=== PATIENT | male | born 1975 | race Caucasian/White ===

== ENCOUNTER 2016-12-10 17:30 | Emergency (ER) | payer MEDICAID ==
[~2016-12-10] VITALS: Wt 103.5 kg
[~2016-12-10 17:30] MED LIST: ACET1TAB40 PO; BACTDS PO; CEPH-443 PO
[2016-12-10] MEDS ORDERED: IBUP-1542 PO (17:47)
[2016-12-10] MEDS ORDERED: OFLO5DRO7 RIGHT EAR (17:47)
--- NOTE | 2016-12-10 17:51 | ERD ---
ER Documentation Chief Complaint Date/Time DATE: 12/10/16 TIME: 17:49 Chief Complaint RIGHT EAR PAIN X3 DAYS HPI This 41-year-old male complains of right ear pain and congestion for the last 3 days. He denies bleeding but may have had some discharge. Some mild congestion without fever or cough. ROS All systems reviewed and are negative except as per history of present illness. Medications Home Meds Active Scripts Ibuprofen* (Motrin*) 600 Mg Tab, 600 MG PO Q6, #20 TAB Prov:ILIR CHAVEZ MD 12/10/16 Ofloxacin Otic (Ofloxacin Otic) 5 Ml Drops, 5 DROP RIGHT EAR BID for 10 Days, # 1 BOTTLE Prov:ILIR CHAVEZ MD 12/10/16 Acetaminophen-Codeine* (Acetaminophen-Cod #3*) 300-30 Mg Tab, 1 TAB PO Q4H Y for PAIN, #14 TAB Prov:ILIR CHAVEZ MD 05/09/15 Cephalexin* (Keflex*) 500 Mg Capsule, 500 MG PO QID for 7 Days, CAP Prov:ILIR CHAVZE MD 05/09/15 Sulfamethoxazole-Trimethoprim* (Bactrim* DS) 800-160 Mg Tab, 1 TAB PO BID for 7 Days, TAB Prov:ILIR CHAVEZ MD 05/09/15 Allergies Allergies: Coded Allergies: No Known Drug Allergies (Verified Allergy, Unknown, 12/10/16) PMhx/Soc History of Surgery: No Anesthesia Reaction: No Hx Neurological Disorder: No Hx Respiratory Disorders: No Hx Cardiac Disorders: No Hx Psychiatric Problems: No Hx Miscellaneous Medical Probl: No Hx Alcohol Use: No Hx Substance Use: No Hx Tobacco Use: No Physical Exam Vitals Vital Signs Date Time Temp Pulse Resp B/P Pulse Ox O2 Delivery O2 Flow Rate FiO2 12/10/16 17:35 97.7 76 17 124/81 98 Physical Exam Const: [] Alert, met-ara-ewlzhtjld per Head: Atraumatic Eyes: Normal Conjunctiva ENT: Normal External Ears, Nose and Mouth. Appears to be some redness to the right TM as well as some irritation, redness and discharge of the external auditory canal. It is difficult to visualize the complete TM a per or communication through the TM cannot be ruled out. There is no mastoid tenderness. Neck: Full range of motion..~ No meningismus. Resp: Clear to auscultation bilaterally Cardio: Regular rate and rhythm, no murmurs Abd: Soft, non tender, non distended. Normal bowel sounds Skin: No petechiae or rashes Back: No midline or flank tenderness Ext: No cyanosis, or edema Neur: Awake and alert Psych: Normal Mood and Affect Procedures/MDM This patient appears with signs of otitis externa. Does appear to penetrate quite deeply some possible abnormalities in the TM. He will be treated with ofloxacin ibuprofen but patient is advised to see a specialist for persistent symptoms despite treatment as signs could represent a cholesteatoma or additional abnormalities which may need specialist confirmation. He should otherwise return to the ER for new or worsening symptoms. Is no evidence of mastoiditis, sepsis, signs or symptoms of meningitis, additional complications. The patient was stable with no new complaints during the ER course. Clinically , there is no current evidence to suggest meningitis, sepsis, acute abdomen, pneumonia, acute coronary syndrome, pulmonary embolism, or any other emergent condition appearing to require further evaluation or hospitalization. The patient should certainly return for any new or worsening symptoms per the aftercare instructions. They should otherwise follow-up with her primary care doctor for reevaluation this week. Departure Diagnosis: Primary Impression: Otitis externa Otitis externa type: unspecified type Laterality: right Chronicity: acute Qualified Code: H60.501 - Acute otitis externa of right ear, unspecified type Additional Impression: Right ear pain Condition: Stable Patient Instructions: External Ear Infection (Adult) Referrals: DEJAN VERA MD, STEPHEN H MD Additional Instructions: SADIE RODRIGUEZ SPECIALIST[facility] SI MIEK SIMPTOMAS DESPUES DE TRATAMIENTOP ILIR CHAVEZ MD Dec 10, 2016 17:51
== END 2016-12-10 18:44 | disposition home or self-care (01) ==
LOC: FTE 17:30
DX: H60.501 Unspecified acute noninfective otitis externa, right ear (principal)
CPT/HCPCS: 99283

== ENCOUNTER 2017-01-25 22:21 | Emergency (ER) | payer MEDICAID ==
[~2017-01-25] VITALS: Wt 105.0 kg
[~2017-01-25 22:21] MED LIST changes: +IBUP-1542 PO; +OFLO5DRO7 RIGHT EAR
[2017-01-25] MEDS ORDERED: AMOX1TAB10 PO (23:10)
[2017-01-25] MEDS ORDERED: IBUP-1542 PO (23:10)
[2017-01-25] MEDS ORDERED: NPH10OT RIGHT EAR (23:10)
--- NOTE | 2017-01-25 23:48 | ERD ---
ER Documentation Chief Complaint Date/Time DATE: 01/25/17 TIME: 23:43 Chief Complaint RIGHT EAR PAIN/PRESSURE SINCE 12/10 HPI 41-year-old male is complaining of right ear pain 6 weeks. Patient stated that he was seen here on 12/10/2016 for the right ear pain, was diagnosed with otitis externa. He was given ofloxacin eardrops at the time. He patient stated that he is ear pain never got better, he has been, slightly worse over time. He has decreased hearing, and yellow drainage from the right ear. Denies fever or chills. Denies swimming. ROS All systems reviewed and are negative except as per history of present illness. Medications Home Meds Active Scripts Neomycin/Polymyxin/Hydrocort* (Cortisporin* Otic) 10 Ml Susp, 4 DROP RIGHT EAR QID for 10 Days, EA Prov:FALLON DESAI NP 01/25/17 Amoxicillin/Potassium Clav (Amox-Clav 875-125 mg Tablet) 875-125 mg Tab, 1 TAB PO BID for 10 Days, #20 TAB Prov:FALLON DESAI NP 01/25/17 Ibuprofen* (Motrin*) 600 Mg Tab, 600 MG PO Q6H Y for PAIN AND OR ELEVATED TEMP, #30 TAB Prov:FALLON DESAI NP 01/25/17 Ibuprofen* (Motrin*) 600 Mg Tab, 600 MG PO Q6, #20 TAB Prov:ILIR CHAVEZ MD 12/10/16 Ofloxacin Otic (Ofloxacin Otic) 5 Ml Drops, 5 DROP RIGHT EAR BID for 10 Days, # 1 BOTTLE Prov:ILIR CHAVEZ MD 12/10/16 Acetaminophen-Codeine* (Acetaminophen-Cod #3*) 300-30 Mg Tab, 1 TAB PO Q4H Y for PAIN, #14 TAB Prov:ILIR CHAVEZ MD 05/09/15 Cephalexin* (Keflex*) 500 Mg Capsule, 500 MG PO QID for 7 Days, CAP Prov:ILIR CHAVEZ MD 05/09/15 Sulfamethoxazole-Trimethoprim* (Bactrim* DS) 800-160 Mg Tab, 1 TAB PO BID for 7 Days, TAB Prov:ILIR CHAVEZ MD 05/09/15 Allergies Allergies: Coded Allergies: No Known Drug Allergies (Verified Allergy, Unknown, 12/10/16) PMhx/Soc Medical and Surgical Hx: pt denies Medical Hx, pt denies Surgical Hx History of Surgery: No Anesthesia Reaction: No Hx Neurological Disorder: No Hx Respiratory Disorders: No Hx Cardiac Disorders: No Hx Psychiatric Problems: No Hx Miscellaneous Medical Probl: No Hx Alcohol Use: No Hx Substance Use: No Hx Tobacco Use: No Smoking Status: Former smoker Physical Exam Vitals Vital Signs Date Time Temp Pulse Resp B/P Pulse Ox O2 Delivery O2 Flow Rate FiO2 01/25/17 22:25 97.3 87 20 120/80 98 Physical Exam General: Well-developed, well-nourished, conscious and coherent, in no distress Skin: Warm and dry without rash, good texture and turgor Head: Normocephalic without evidence of trauma Eyes: Sclera and conjunctivae normal; pupils equal, round, and reactive to light; extraocular movements are intact Ears: Left canal patent, tympanic membrane clear. Left canal narrowing and erythematous, with purulent exudate. Unable to visualize left TM. Left tragal tenderness. No mastoid tenderness. Nose/Face: Without rhinorrhea Mouth/throat: Mucous membranes are moist. Posterior pharynx clear without erythema or exudates Neck: Supple without meningismus or adenopathy. Carotids are equal. Trachea midline. No bruits or JVD Chest: Normal AP diameter. Good expansion without retractions. Nontender. Lungs are clear to auscultate bilaterally with good tidal volume Heart: Regular rate and rhythm. No murmur, rub, or gallops heard Neuro: Alert and oriented 4, GCS 15. Cranial nerves grossly intact. Motor and sensory exams nonfocal. Moves all extremities. Speech clear. Gait normal Procedures/MDM Well-appearing 41-year-old male present ED with otitis externa after topical antibiotic failure. I feel this time he needs to be treated orally in addition to topically. Augmentin p.o. and Cortisporin otic drops prescribed for the patient. Patient advised to follow-up with PCP for ENT referral. Patient given list of community clinics for follow-up. Patient appears well, stable for discharge and outpatient management. Medical decision making shared with patient and family. Education provided to patient and family. Patient and family expressed understanding of the plan. Medications on discharge: Ibuprofen, Cortisporin Otic, Augmentin. Follow-up: Primary care provider in 2-3 days or return to ED if worse. Departure Diagnosis: Primary Impression: Otitis externa Condition: Stable Patient Instructions: External Ear Infection (Adult) [facility] Usted se stringer hecho un examen mdico de control que le indica que no est en racheal condicin que requiera tratamiento urgente en el Departamento de Emergencia. Un estudio ms profundo y el tratamiento de briones condicin pueden esperar sin ningn riesgo hasta que usted sea atendida/o en el consultorio de briones mdico o racheal cl baldev. Es responsabilidad suya arreglar racheal yobany para el seguimiento del shayy. MANEJO DE CONDICIONES NO URGENTES EN EL FUTURO 1) Si usted tiene un mdico de atencin primaria: Usted debera llamar a briones mdico de atencin primaria antes de venir al departamento de emergencia. Despus de las horas de consultorio, briones doctor o briones asociado/a est disponible por telfono. El mdico o enfermero de gale en el servicio telefnico puede asesorarle por rekha medio para atender el problema, o shayy contrario se puede programar racheal yobany. 2) Si usted no tiene un mdico de atencin primaria: Llame al mdico o clnica de referencia que aparece abajo herve las horas de consultorio para hacer racheal yobany para que le vean. CLINICAS: [facility] [phone] [id number] [facility] [phone] [id number] [place] [phone] [address] [facility] [phone] [address] [facility]. [facility] [phone] [address] [facility]. [phone] [address] Additional Instructions: Specialist:Usted tiene racheal condicin mdica que requiere que xiang a un especialista dentro de los prximos 1-2 sharma.POR FAVOR,CON BRIONES SEGUIMIENTO DE PRIMARIA PHSICIAN refferal. SI USTED NO TIENE UN MDICO GENERAL Y / O USTED NO PUEDE PAGAR sivan a un mdico,los siguientes mendoza RECURSOS sido suministrado a usted. ES BRIONES RESPONSABILIDAD PARA SER VISTOS POR EL ESPECIALISTA: FALLON DESAI NP January 25, 2017 23:48
== END 2017-01-25 23:31 | disposition home or self-care (01) ==
LOC: FTE 22:21
DX: H60.91 Unspecified otitis externa, right ear (principal); Z87.891 Personal history of nicotine dependence
CPT/HCPCS: 99283

== ENCOUNTER 2019-05-18 05:28 | Emergency (ER) | payer MEDICAID ==
[~2019-05-18] VITALS: Ht 175.3 cm; Wt 97.8 kg
[~2019-05-18 05:28] MED LIST changes: +AMOX1TAB10 PO; +MECL12.574 PO; +NPH10OT RIGHT EAR; +ONDA4TAB14 PO
[2019-05-18 05:30] VITALS: Ht 175.3 cm; Wt 97.8 kg
[2019-05-18] MEDS ORDERED: ONDANSETRON 4 MG INJ IV STA (06:27)
[2019-05-18] MEDS ORDERED: SOD CHLORIDE 0.9% 1,000 ML IV STA (06:27)
[2019-05-18] MEDS ORDERED: MECLIZINE 12.5 MG TAB PO ONE (06:30)
[2019-05-18 08:29] VITALS: BP 125/80; PULSE 75; RESP 18
== END 2019-05-18 08:31 | disposition home or self-care (01) ==
LOC: FTE 05:28
DX: H81.10 Benign paroxysmal vertigo, unspecified ear (principal); Z87.891 Personal history of nicotine dependence
CPT/HCPCS: 36415; 80053; 83690; 84484; 85025; 93005; 96374; J2405; J7030; Z7502; Z7610